=== PATIENT | female | born 1995 | race Native Hawaiian/Other Pacific Islander ===

== ENCOUNTER 2025-01-07 06:44 | Emergency (ER) | payer MEDICAID, SELFPAY ==
--- OUTSIDE RECORDS SUMMARY | 2025-01-07 06:48 | XMS_ITS | Clinical Summary ---
Author Organization [facility] Address [address] [place] [address] Care Team Providers Care Sound Effects Technician Name Role Phone Haley Kearney MD Primary Care Provider [phone] Haley Kearney MD Unavailable [phone] Allergies No known active allergies Medications insulin NPH isophane (U-100) (HumuLIN N NPH Insulin KwikPen) 100 unit/mL (3 mL) penIndications :Type 2 diabetes mellitus in , first trimester (HC) Inject 7 units subcutaneous two times daily before meals. 20 mL 3 01/06/20 25 Active blood sugar diagnostic (Blood Glucose Test) stripIndicatio ns:Type 2 diabetes mellitus in , first trimester (HC) Test 4 times per day. 200 Each 01/06/20 25 Active lancetsIndicat ions:Type 2 diabetes mellitus in , first trimester (HC) As directed. Test 4 times per day. 200 Each 01/06/20 25 Active Insulin [place] (Disposable) 32 gauge x 5/16Indicatio ns:Type 2 diabetes mellitus in , first trimester (HC) For administering insulin at home. 100 Each 01/06/20 25 Active glipiZIDE extended-relea se (GLUCOTROL XL) 10 mg Extended-Relea se tabletIndicati ons:Type 2 diabetes mellitus with hyperglycemia, without long-term current use of insulin (HC) Take 1 Tablet (10 mg) by mouth once daily before a meal. 100 Tablet 3 12/01/19 25 025 Discontin ued(*Med complete/ Regimen complete/ Level of care change) atorvastatin (LIPITOR) 20 mg tabletIndicati ons:Type 2 diabetes mellitus with hyperglycemia, without long-term current use of insulin (HC) Take 1 Tablet (20 mg) by mouth at bedtime. 100 Tablet 3 12/01/19 25 025 Discontin ued(*Med complete/ Regimen complete/ Level of care change) metFORMIN (GLUCOPHAGE XR) 500 mg Extended-Relea se tabletIndicati ons:Type 2 diabetes mellitus with hyperglycemia, without long-term current use of insulin (HC) Take 1 Tablet (500 mg) by mouth two times daily with meals. 200 Tablet 3 12/01/19 25 025 Discontin ued(*Med complete/ Regimen complete/ Level of care change) Active Problems Problem Noted Date Diagnosed Date [facility] Supervision of high-risk Overview (01/06/2025): SRO MPP - Completed [] Patient name: Viviane Torres : 1995 Age: 29 y.o. Date of SRO: 01/06/2025 Estimated Date of Delivery: None noted. Gest Age: Unknown G/P: Current BMI: 46.2 Reason for referral: consult for recommendations REFERRING PROVIDER/CLINIC LOCATION/FAX #: Haley Kearney MD Primary MD approves scheduling of recommended ultrasounds/testing: No Please schedule the following: [x] Cervantes [] Multiples: [x] Consult [x] Ultrasound: - Level 2 (including echo) - 75 minutes [] Lab: [] Genetic Counseling [] Before [] After []15 [] 30 []45 []CVS []Amnio [] BMI > 40 [] Short Order Fry Cook - Language [] [place] Insurance: Location [facility] [] In-person [] Virtual [] Either [facility] Comments: RN: Store Person: ROMEO: /Provider: Date:01/06/2025 Urgency: []Can be sooner [] Can be split Viviane Torres : 1995 REFERRING PROVIDER/CLINIC LOCATION/FAX #: Primary provider approves scheduling of recommended ultrasounds/testing: No MPP ULTRASOUND/TESTING PATIENT MPP CONSULT ON Support person name: Short Order Fry Cook: No ULTRASOUND TYPE: REASON FOR VISIT: NEXT VISIT ALERTS: NURSING VISIT ALERT: Create and link episode at day of visit. Document in Dating section. GA Final ROC by LMP Date: No LMP recorded. ROC: Early US: Date: GA: ROC: IVF Date: PrePregnancy Weight: Height: BMI: PLANS & FUTURE APPOINTMENTS: ULTRASOUND/GROWTH PLAN: - Through: - Growth: Next TESTING PLAN: - Testing: Through DELIVERY PLAN: - Scheduled delivery: - Preferred delivery location: PRIMARY DIAGNOSIS: 29 y.o. No obstetric history on file. Estimated Date of Delivery: None noted. MATERNAL Type II DM microalbuminuria BMI > If mono/di twins add .MONODISCHEDULE If Diabetes Program patient add .DMPCOMM PREVIOUS ULTRASOUNDS: (PCP) ECHO: SPECIALISTS/CONSULTS: [facility] Include: Specialty MD Clinic Name Phone# [place] and ADDED TO PATIENT CARE TEAM GENETICS: NIPS: [id number] low risk AFP: Negative First screen (NT/seq/integ): if positive add .FIRSTABNORMAL Quad screen (Tetra/Triple screen): if positive add .QUADABNORMAL Amniocentesis/CVS: IVF with PGT: Carrier screening: Declines/Not Done CARE COORDINATION: PERTINENT LABS: Labs reviewed? Normal? Blood type: O Rh Positive Antibody screen: Negative Non-[facility] labs need to be entered in EPIC? PERTINENT MEDS: Glipizide Janumet PROCEDURES: IF FGR <10% or EFW <2000 grams: Add FGRPCOM PLAN OF CARE: Original and updated POC Microalbuminuria due to type 2 diabetes mellitus 12/01/2024 Type 2 diabetes mellitus wit h hyperglycemia, without long-term current use of insulin 12/01/2024 Class 3 severe obesity with body mass index (BMI) of 40.0 to 44.9 in adult 12/01/2024 Type 2 diabetes mellitus wit h diabetic microalbuminuria, without long-term current use of insulin 12/01/2024 Cholangitis 02/25/2018 Disorder of bile duct stent 02/22/2018 Biliary obstruction 02/22/2018 Encounters Date Type Department Care Team Description 01/05/2025 9:10 AM CDT Office Visit [facility] [address] [place] [address] Haley Kearney MD Missed Period 01/05/2025 Telephone [facility] [address] [place] [address] Haley Kearney MD Medication Management (insulin NPH isophane (U-100) (HumuLIN N NPH Insulin KwikPen) 100 unit/mL (3 mL) pen) 01/05/2025 Transcribe Orders [facility] [address] [facility] [address] [place] [address] Haley Kearney MD 01/05/2025 Travel 12/09/2024 8:20 AM TOMB MAKER HELPER Office Visit [facility] [address] [place] [phone] Laura Woodward OD Eye Exam (DIRECTOR MOBILE/DM Exam) 12/09/2024 Travel 12/06/2024 Telephone [facility] [address] [place] [address] Haley Kearney MD Questions (metFORMIN (GLUCOPHAGE XR) 500 mg Extended-Release tablet) 12/04/2024 Travel 12/01/2024 8:20 AM TOMB MAKER HELPER Office Visit [facility] [address] [place] [address] Haley Kearney MD Diabetes (Has been feeling really bloated in the afternoons for the last month-abdomen is painful and hard to touch, very uncomfortable and painful to touch-skipped her metformin one night and sx seemed to be better) 12/01/2024 Telephone [facility] [address] [facility] [address] Haley Kearney MD Medication Management (metformin ) 11/30/2024 Travel 10/19/2024 Telephone [facility] [address] [place] [address] Haley Kearney MD Refill Request (/metFORMIN (GLUCOPHAGE XR) 500 mg Extended-Release tablet/) from Last 3 Months Family History Medical History Relation Name Comments Diabetes Brother Hypertension Brother Diabetes Father Diabetes Maternal Aunt Cancer-prostate Maternal Grandfather Diabetes Mother Good Health Sister Relation Name Status Comments Brother Father Maternal Aunt Alive Maternal Grandfather Mother Sister Social History Tobacco Use Types Packs/Day Years Used Date Smoking Tobacco: Never Smokeless Tobacco: Never Tobacco Cessation:Counseling Given: Not Answered Alcohol Use Standard Drinks/Week Comments No 0 (1 standard drink = 0.6 oz pur e alcohol) occ PHQ-2 Answer Date Recorded PHQ-2 TOTAL SCORE 2 12/01/2024 Social Connections Answer Date Recorded Do you often feel lonely or isolated from those around you? 0 08/29/2024 Financial Resource Strain Answer Date R ecorded Difficulty of Paying Living Expenses 3 08/29/2024 Difficulty of Paying Living Expenses Not on file 08/29/2024 Food Insecurity Answer Date Recorded Do you worry your food will run out before you are able to buy more? 1 08/29/2024 Transportation Needs Answer Date Record ed Does lack of transportation keep you from medica l appointments? 1 08/29/2024 Does lack of transportation keep you from work, meetings or getting things that you need? 1 08/29/2024 Housing Stability Answer Date Recorded What is your housing situation today? 1 08/29/2024 Utilities Answer Date Recorded Do you have trouble paying f or utilities (for example, heat, electricity, water, phone)? 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 file Not on file Not on file Obstetrics History Last Filed Vital Signs Vital Sign Reading Time Taken Comments Blood Pressure 113/70 01/05/2025 9:10 AM CDT Pulse 93 01/05/2025 9:10 AM CDT Temperature 36.8 C (98.3 F) 04/22/2018 10:23 AM CDT Respiratory Rate 18 02/25/2018 12:00 PM CDT Oxygen Saturation 99% 01/05/2025 9:10 AM CDT Inhaled Oxygen Concentration - - Weight 136.5 kg (301 lb) 01/05/2025 9:10 AM CDT Height 172.5 cm (5' 7.91) 04/22/2018 10:23 AM C DT Body Mass Index 45.88 04/22/2018 10:23 AM CDT Plan of Treatment Upcoming Encounters Date Type Department Care Team (Late st Contact Info) Description 01/10/2025 1:00 PM CDT Office Visit [address] [address] 01/12/2025 9:40 AM CDT Phone OB Encounter [facility] [address] [place] [address] 01/17/2025 9:00 AM CDT Patient Outreach [facility] [address] [place] [address] Emilee Perea RN [address] [place] [address] 01/17/2025 10:30 AM CDT Office Visit [facility] [address] [address] [place] [address] [place] [address] 01/17/2025 4:00 PM CDT Ancillary Procedure [facility] [address] [place] [address] 01/25/2025 1:00 PM CDT Patient Outreach [address] [address] 02/02/2025 8:20 AM CDT OB Encounter [facility] [address] [facility] [address] Haley Kearney MD [address] [facility] [address] Health Maintenance Due Date Last Done Comments Tdap 2004 Hepatitis B series for Diabe kaylene (1 of 3 - 19+ 3-dose series) 2012 Pneumococcal series for age 6-49 (1 of 2 - PCV) 2012 Tetanus booster 2013 BMI (ht and wt on same day) for age 18+ 04/22/2019 04/22/2018, 04/01/2018, 03/01/2018, Additional history exists Pap test for age 21-65 06/26/2020 06/26/2017 COVID-19 vaccine series ( - 2023- season) 2024 Influenza Vaccine (#1) 2024 Depression screening for age 12+ 12/01/2025 12/01/2024, 12/01/2024, 06/26/2017 HIV for age 15-65 Completed 01/05/2025, 06/26/2017 Hepatitis C screening for ag e 18-79 Completed 01/05/2025, 06/26/2017 Procedures Procedure Name Priority Date/Time Associated Diagnosis Comments HEMOGLOBIN A1C Routine 01/05/2025 10:52 AM CDT Type 2 diabetes mellitus in , first trimester (HC) TSH WITH REFLEX Routine 01/05/2025 10:52 AM CDT Type 2 diabetes mellitus in , first trimester (HC) COMP METABOLIC PANEL Routine 01/05/2025 10:52 AM CDT Type 2 diabetes mellitus in , first trimester (HC) ANTI HIV 1/2 Routine 01/05/2025 10:52 AM CDT Missed period CBC W PLT NO DIFF Routine 01/05/2025 10: 52 AM CDT Missed period RUBELLA IMMUNE STATUS Routine 01/05/2025 10:52 AM CDT Missed period HBSAG (HBS) Routine 01/05/2025 10:52 AM CDT Missed period ANTI HCV Routine 01/05/2025 10:52 AM CDT Missed period VARICELLA-ZOSTER V AB, IGG Routine 01/05/2025 10:52 AM CDT Missed period VARICELLA-ZOSTER V AB, IGG Routine 01/05/2025 10:51 AM CDT Missed period TYPE & SCREEN Routine 01/05/2025 10:49 AM CDT Missed period TREPONEMA PALLIDUM Routine 01/05/2025 10 :49 AM CDT Missed period URINE CULTURE Routine 01/05/2025 10:49 AM CDT Missed period PROTEIN/CREAT RATIO,URINE Routine 01/05/2025 10:49 AM CDT Type 2 diabetes mellitus in , first trimester (HC) URINE POCT Routine 01/05/2025 9:19 AM CDT Missed period HEMOGLOBIN A1C MONITORING (POCT) Routine 12/01/2024 8:23 AM TOMB MAKER HELPER Type 2 diabetes mellitus with hyperglycemia, without long-term current use of insulin (HC) SUPPORT ASSISTANT THIN PREP PAP SCREEN IMAGED Routine 06/26/2017 8:40 AM CDT Screening for cervical cancer from Last 3 Months or Most Recently Relevant to Health Maintenance Results * LC VARICELLA-ZOSTER V AB, IGG (01/05/2025 10:52 AM CDT) Only the most recent of2 resultswithin the time period is included. VARICELLA ZOSTER VIRUS ANTIBODY (IGG) 6.42 S/CO [facility] Comment: Signal to Cut-off S/CO Interpretation --------- <1.00 Negative - Antibody not detected > or = 1.00 Positive - Antibody detected A positive result indicates that the patient has antibody to VZV but does not differentiate between an active or past infection. The clinical diagnosis must be interpreted in conjunction with the clinical signs and symptoms of the patient. This assay reliably measures immunity due to previous infection but may not be sensitive enough to detect antibodies induced by vaccination. Thus, a negative result in a vaccinated individual does not necessarily indicate susceptibility to VZV infection. A more sensitive test for vaccination-induced immunity is Varicella Zoster Virus Antibody Immunity Screen, ACIF. Blood BLOOD SPECIMEN / Unknown 01/05/2025 10:52 AM CDT 01/05/2025 10:52 AM CDT us Haley Kearney MD LABORATORY Final Resul t [employer] [facility] [address] [place] [address], [facility] [address] [place] [address] * (ABNORMAL) HEMOGLOBIN A1C (01/05/2025 10:52 AM CDT) [facility] HEMOGLOBIN A1C 8.7(H) <5.7 % of total Hgb [facility] Comment: For someone without known diabetes, a hemoglobin A1c value of 6.5% or greater indicates that they may have diabetes and this should be confirmed with a follow-up test. For someone with known diabetes, a value <7% indicates that their diabetes is well controlled and a value greater than or equal to 7% indicates suboptimal control. A1c targets should be individualized based on duration of diabetes, age, comorbid conditions, and other considerations. Currently, no consensus exists regarding use of hemoglobin A1c for diagnosis of diabetes for children. Blood BLOOD SPECIMEN / Unknown 01/05/2025 10:52 AM CDT 01/05/2025 10:52 AM CDT us Haley Kearney MD CHEMISTRY Final Resul t Performing Organization Address [facility] de Phone Number [employer] [facility] [address] [place] [phone], [facility] [address] [place] [phone] * TSH WITH REFLEX (01/05/2025 10:52 AM CDT) TSH W/REFLEX TO FT4 2.73 mIU/L [facility] Comment: Reference Range > or = 20 Years 0.40-4.50 Ranges First trimester 0.26-2.66 Second trimester 0.55-2.73 Third trimester 0.43-2.91 Blood BLOOD SPECIMEN / Unknown 01/05/2025 10:52 AM CDT 01/05/2025 10:52 AM CDT us Haley Kearney MD CHEMISTRY Final Resul t Performing Organization Address [facility] de Phone Number [employer] [address] [address], [facility] [address] * RUBELLA IMMUNE STATUS (01/05/2025 10:52 AM CDT) RUBELLA AB (IGG), IMMUNE STATUS 3.30 Index [facility] Comment: Index Interpretation ----- <0.90 Not consistent with immunity 0.90-0.99 Equivocal > or = 1.00 Consistent with immunity The presence of rubella IgG antibody suggests immunization or past or current infection with rubella virus. Blood BLOOD SPECIMEN / Unknown 01/05/2025 10:52 AM CDT 01/05/2025 10:52 AM CDT us Haley Kearney MD SEND OUTS Final Resul t Performing Organization Address [facility] Co de Phone Number [employer] [address] [address], [facility] [address] [place] [address] * HBSAG (HBS) (01/05/2025 10:52 AM CDT) HEPATITIS B SURFACE ANTIGEN NON-REACTI VE NON-REACTI VE [facility] Comment: For additional information, please refer to http://[employer]/faq/OXS468 (This link is being provided for informational/ educational purposes only.) Blood BLOOD SPECIMEN / Unknown 01/05/2025 10:52 AM CDT 01/05/2025 10:52 AM CDT us Haley Kearney MD SEND OUTS Final Resul t Performing Organization Address [facility] Co de Phone Number [employer] [address] [address], [facility] [address] [place] [address] * ANTI HCV (01/05/2025 10:52 AM CDT) HEPATITIS C ANTIBODY NON-REACTI VE NON-REACT IZZY [facility] Comment: HCV antibody was non-reactive. There is no laboratory evidence of HCV infection. In most cases, no further action is required. However, if recent HCV exposure is suspected, a test for HCV RNA (test code 22986) is suggested. For additional information please refer to http://[employer].R[employer]HT [employer]/faq/JAG68g5 (This link is being provided for informational/ educational purposes only.) Blood BLOOD SPECIMEN / Unknown 01/05/2025 10:52 AM CDT 01/05/2025 10:52 AM CDT us Haley Kearney MD SEND OUTS Final Resul t [employer] [facility] [address] [facility] [place] [address], [place] [phone] [facility] [address] [place] [address] * (ABNORMAL) CBC W PLT NO DIFF (01/05/2025 10:52 AM CDT) Pathologist [facility] WHITE BLOOD CELL COUNT 14.3(H) 3.8 - 10.8 Thousand/u L [facility] RED BLOOD CELL COUNT 4.52 3.80 - 5.10 Million/uL [facility] HEMOGLOBIN 12.4 11.7 - 15.5 g/dL [facility] HEMATOCRIT 39.3 35.0 - 45.0 % [facility] MCV 86.9 80.0 - 100.0 fL [facility] MCH 27.4 27.0 - 33.0 pg [facility] MCHC 31.6(L) 32.0 - 36.0 g/dL [facility] Comment: For adults, a slight decrease in the calculated MCHC value (in the range of 30 to 32 g/dL) is most likely not clinically significant; however, it should be interpreted with caution in correlation with other red cell parameters and the patient's clinical condition. RDW 12.8 11.0 - 15.0 % [facility] PLATELET COUNT 384 140 - 400 Thousand/u L [facility] MPV 10.2 7.5 - 12.5 fL [facility] Blood BLOOD SPECIMEN / Unknown 01/05/2025 10:52 AM CDT 01/05/2025 10:52 AM CDT us Haley Kearney MD HEMATOLOGY Final Resul t [employer] [facility] [address] [employer] [address], [place] [phone] [facility] [address] [place] [address] * ANTI HIV 1/2 (01/05/2025 10:52 AM CDT) Pathologist [facility] HIV AG/AB, 4TH GEN NON-REACT IZZY NON-REACT IZZY [facility] Comment: HIV-1 antigen and HIV-1/HIV-2 antibodies were not detected. There is no laboratory evidence of HIV infection. PLEASE NOTE: This information has been disclosed to you from records whose confidentiality may be protected by state law. If your state requires such protection, then the state law prohibits you from making any further disclosure of the information without the specific written consent of the person to whom it pertains, or as otherwise permitted by law. A general authorization for the release of medical or other information is NOT sufficient for this purpose. For additional information please refer to http://education.Seagate [employer]/faq/ZKH085 (This link is being provided for informational/ educational purposes only.) The performance of this assay has not been clinically validated in patients less than 2 years old. Blood BLOOD SPECIMEN / Unknown 01/05/2025 10:52 AM CDT 01/05/2025 10:52 AM CDT us Haley Kearney MD SEND OUTS Final Resul t [employer] [facility] [address] [place] [address], [facility] [address] [place] [address] * (ABNORMAL) COMP METABOLIC PANEL (01/05/2025 10:52 AM CDT) Pathologist [facility] GLUCOSE 191(H) 65 - 99 mg/dL [facility] Comment: Fasting reference interval For someone without known diabetes, a glucose value >125 mg/dL indicates that they may have diabetes and this should be confirmed with a follow-up test. UREA NITROGEN (BUN) 10 7 - 25 mg/dL [facility] CREATININE 0.50 0.50 - 0.97 mg/dL [facility] EGFR 129 > OR = 60 mL/min/1. 73m2 [facility] BUN/CREATININE RATIO SEE NOTE: 6 - 22 (calc) [facility] Comment: Not Reported: BUN and Creatinine are within reference range. SODIUM 133(L) 135 - 146 mmol/L [facility] POTASSIUM 4.8 3.5 - 5.3 mmol/L [facility] CHLORIDE 101 98 - 110 mmol/L [facility] CARBON DIOXIDE 23 20 - 32 mmol/L [facility] CALCIUM 9.6 8.6 - 10.2 mg/dL [facility] PROTEIN, TOTAL 8.2(H) 6.1 - 8.1 g/dL [facility] ALBUMIN 4.6 3.6 - 5.1 g/dL [facility] GLOBULIN 3.6 1.9 - 3.7 g/dL (calc) [facility] ALBUMIN/GLOBULIN RATIO 1.3 1.0 - 2.5 (calc) [facility] BILIRUBIN, TOTAL 0.3 0.2 - 1.2 mg/dL [facility] ALKALINE PHOSPHATASE 96 31 - 125 U/L [facility] AST 14 10 - 30 U/L [facility] ALT 17 6 - 29 U/L [facility] Blood BLOOD SPECIMEN / Unknown 01/05/2025 10:52 AM CDT 01/05/2025 10:52 AM CDT us Haley Kearney MD CHEMISTRY Final Resul t [employer] [facility] [address] [place] [address], [facility] [address] [place] [address] * TREPONEMA PALLIDUM (01/05/2025 10:49 AM CDT) TREPONEMA PALLIDUM Non-Reacti ve Non-Reacti ve 01/05/2025 3:40 PM CDT [facility] Blood BLOOD SPECIMEN / Unknown [facility] / Unknown 01/05/2025 10:49 AM CDT 01/05/2025 10:49 AM CDT Haley Kearney MD SEND OUTS Final Resul t [facility] [address] [place] [address], * TYPE AND SCREEN (01/05/2025 10:49 AM CDT) Pathologist [facility] ABORH O Rh Positive 01/05/2025 4:40 PM CDT [facility] ANTIBODY SCREEN Negative Negative 01/05/2025 4:40 PM CDT [facility] SPECIMEN EXPIRATION DATE/TIME 01/08/25 23:59 01/05/2025 4:40 PM CDT [facility] Blood BLOOD SPECIMEN / Unknown [facility] / Unknown 01/05/2025 10:49 AM CDT 01/05/2025 10:49 AM CDT us Haley Kearney MD BLOOD BANK Final Resul t Performing Organization Address City[facility]/ZIP Co de Phone Number [facility] [address] [place] [address], [place] [phone] * (ABNORMAL) PROTEIN/CREAT RATIO,URINE (01/05/2025 10:49 AM CDT) Pathologist [facility] PROTEIN QUANT,RAND URINE <6 1 - 14 mg/dL 01/05/2025 4:59 PM CDT [facility] CREAT,RANDOM URINE 22.1(L) 28.0 - 217.0 mg/dL 01/05/2025 4:59 PM CDT [facility] PROT/CREAT RATIO,UR 01/05/2025 4:59 PM CDT [facility] Comment:Urine Protein below measurement range, unable to calculate. Urine URINE SPECIMEN / Unknown Non-Blood / Unknown 01/05/2025 10:49 AM CDT 01/05/2025 10:49 AM CDT us Haley Kearney MD URINE Final Resul t Performing Organization Address City[facility]/ZIP Co de Phone Number [facility] [address] [phone], [place] * URINE CULTURE (01/05/2025 10:49 AM CDT) Pathologist [facility] CULTURE No growth (<1,000 CFU/mL) 01/06/2025 2:53 PM CDT [facility] Urine URINE SPECIMEN / Unknown Non-Blood / Unknown 01/05/2025 10:49 AM CDT 01/05/2025 10:49 AM CDT us Haley Kearney MD MICROBIOLOGY Final Resul t Performing Organization Address [facility] Co de Phone Number [facility] [address] [place] [address], * (ABNORMAL) POCT Urine (01/05/2025 9:19 AM CDT) [facility] POC HCG URINE POSITIVE(A ) NEGATIVE [facility] Urine URINE SPECIMEN / Unknown 01/05/2025 9:19 AM CDT 01/05/2025 9:19 AM CDT us Haley Kearney MD URINE Final Resul t Performing Organization Address City/[facility] Co de Phone Number [facility] [address] [place] [address], [place] [phone] [facility] [address] [place] [address] * (ABNORMAL) POCT Hemoglobin A1C Monitoring (12/01/2024 8:23 AM TOMB MAKER HELPER) Pathologist [facility] POC HEMOGLOBIN A1C 9.2(H) <6.0 % OF TOTAL HGB [facility] Comment: Any point of care results exhibiting inconsistency with the patient's clinical status should be repeated using a different testing method. Blood BLOOD SPECIMEN / Unknown 12/01/2024 8:23 AM TOMB MAKER HELPER 12/01/2024 8:24 AM TOMB MAKER HELPER us Haley Kearney MD CHEMISTRY Final Resul t [facility] [address] [place] [address], [facility] [address] [place] [address] * SUPPORT ASSISTANT THIN PREP PAP SCREEN IMAGED (06/26/2017 8:40 AM CDT) Case Report Gynecologic Cytology Report Case: [id number] Authorizing Provider: Emelia Chatman PA Collected: 06/26/2017 0840 Ordering Location: [facility] Received: 06/26/2017 0931 Clinic First Screen: Doretha Lr Specimen: SUPPORT ASSISTANT ThinPrep Vial Screening, Cervical 07/01/2017 11:09 AM CDT [facility] [employer] ENTRAL LABORATORY INTERPRETATION/ RESULT NEGATIVE FOR INTRAEPITHELIAL LESION OR MALIGNANCY (NIL) (none) 07/01/2017 11:09 AM CDT [facility] [employer] ENTRAL LABORATORY IMEN ADEQUACY Satisfactory for evaluation No endocervical component seen 07/01/2017 11:09 AM CDT [facility] HPV REQUEST HPV if ASCUS 07/01/2017 11:09 AM CDT [employer] ENTRAL LABORATORY Date of LMP 06/07/2017 07/01/2017 11:09 AM CDT [facility] [employer] ENTRAL LABORATORY Last Pap Date 1 or 2 years ago 07/01 11:09 AM CDT [employer] ENTRAL LABORATORY Last Pap Result NIL 7 11:09 AM CDT [facility] Abnormal Pap or [place] Bx in last 5 years No 07/01/2017 11:09 AM CDT [facility] Menstrual Status Irregular Periods 07/01/2017 11:09 AM CDT [facility] [place] Bx Done Today No 07/01/2017 11:09 AM CDT [facility] Additional Information None given 07/01/2017 11:09 AM T [facility] Automated Review Successful 07/01/2017 11:09 AM T [facility] Comment:Specimen processed s uccessfully by automated front desk receptionist device, ThinPrep Imaging System, [employer] Note The pap test is a screening technique, not a diagnostic procedure. It is used primarily to screen for squamous cancers and precursor lesions. Published studies have shown that it is subject to both false negative and false positive results. The pap test should not be used as the sole means to diagnose or exclude pre-malignant and malignant lesions. Interpreted at [facility] ([facility] Lab, [facility], [facility], [facility], [facility], [facility], [facility]) 07/01/2017 11:09 AM T [facility] Other (Cervical) 06/26/2017 8:40 AM CDT 06/26/2017 9:31 AM CDT us Emelia AMATO PATHOLOGY/CYTOLOGY Celina pack Result [facility] [address] [place] [address], [place] from Last 3 Months or Most Recently Relevant to Health Maintenance Insurance . [address] [place] [address] [facility] Advance Directives * Full Code (Latest Code Status on File) Date Activated Date Inactivated Comments 02/22/2018 10:31 PM 02/25/2018 5:11 PM Care Teams Sound Effects Technician Relationship Specialty Start Date End Date Haley Kearney MD [address] [place] [address] PCP - General Family Practice 08/29/24 Haley Kearney MD [address] [place] [address] Referring Provider Family Practice 01/05/25
[2025-01-07 06:56] VITALS: BP 120/81; PULSE 111; RESP 18; TEMP 36.7; O2SAT 98; BMI 45.6
[2025-01-07 06:58] LABS: Appearance Urine Slightly Cloudy (Clear); Bilirubin Urine Negative (Negative); Blood Urine 2+ (Negative); Color Urine Yellow (Yellow); Glucose Urine Negative (Negative); Ketones Urine 1+ (Negative); Leukocyte Esterase Urine 1+ (Negative); Nitrite Urine Negative (Negative); Protein Urine Trace (Negative); Specific Gravity Urine 1.025 (1.000-1.030); Urobilinogen Urine 0.2 (0.2-1.0)
[2025-01-07 07:05] LABS: Ur HCG Qualitative* POSITIVE (Negative)
[2025-01-07 07:11] LABS: Bacteria Urine Many; Squamous Epithelial Cell Urine Many (None-Few)
--- NOTE | 2025-01-07 07:12 | CRLHL7_ITS ---
For Patients: As a result of the Century Cures Act, medical imaging exams and procedure reports are released immediately into your electronic medical record. You may view this report before your referring provider. If you have questions, please contact your health care provider. INDICATION: with spotting. TECHNIQUE: Ultrasound OB pelvis transvaginal. Real-time roy-scale imaging of the pelvis was performed. COMPARISON: None. FINDINGS: Uterus and endometrium: Small sac or fluid collection may be within the left horn of a bicornuate uterus. Yolk sac: Not visualized. Fetus: Not visualized. Perigestational hemorrhage: None. Ovaries and adnexa: A thick-walled lesion in or adjacent to the right ovary measures 3 x 2 x 2 cm. Remainder of the ovaries and adnexa are unremarkable. Suspicious pelvic fluid collections: None. IMPRESSION: 1. Indeterminate small sacral fluid collection which may be in the left horn of a possible bicornuate uterus. 2. 3 x 2 x 2 cm thick-walled cystic lesion in or adjacent to the right ovary. This could represent a corpus luteum. Ectopic is not excluded. 3. The findings in the endometrium and right adnexa are indeterminate and warrant close short-term follow-up evaluation with beta HCG levels and repeat ultrasound if necessary. Dictated by Javier Mendez MD @ 01/07/2025 8:37:49 AM (Electronically Signed)
--- NOTE | 2025-01-07 07:13 | ED.GENADULT ---
HPI - General Adult General Chief complaint: Urogenital Problems, Female <Sofi Angela MD - Last Filed: 01/09/25 00:00> Stated complaint: nausea, spotting (), painful urination <Sofi Angela MD - Last Filed: 01/09/25 00:00> Time Seen by Provider: 01/07/25 06:52 <Sofi Angela MD - Last Filed: 01/09/25 00:00> Source: patient <Sofi Angela MD - Last Filed: 01/09/25 00:00> Mode of arrival: ambulatory <Sofi Angela MD - Last Filed: 01/09/25 00:00> Limitations: no limitations <Sofi Angela MD - Last Filed: 01/09/25 00:00> History of Present Illness HPI narrative: 29-year-old female presents to the emergency department with concerns of dysuria, lower pelvic achiness, vaginal spotting at 6 weeks estimated gestational age of 2nd . Patient reports she had a positive test at home on and was evaluated in the clinic for this. She had confirmatory urine test performed and she did have her initial OB labs drawn. She is able to pull these up for me on her phone confirms that her blood type is O-positive. This is her 2nd in her 1st was back in [place]. She has a history of type 2 diabetes and typically takes glipizide and metformin and was transition to nightly basal insulin at the provider visit on which is 2 days ago. No fever. Does note urinary frequency, urgency and burning. She is pretty confident that the source of the bleeding is vaginal and not urinary but is not completely confident. Light spotting only, no heavy bleeding or clots. This started last night around 9:00 p.m.. No history of kidney stones. Blood sugars running 200-250. Has been having morning nausea for the past couple of mornings. Had this in her last and did Zofran and found it helpful. Did not try taking any this morning and has had some vomiting this morning. She does not seem particularly bothered by it. No abdominal pain, shortness of breath, lightheadedness. No trauma or injury. Did not try any other interventions to help with symptoms. Has not had ultrasound performed in this thus yet. Is confident of her last menstrual period 6 weeks ago. Past medical history notable for obesity, type 2 diabetes. Prior cholecystectomy. Nonsmoker. Home medications currently basal insulin, recently discontinuing metformin and glipizide. Denies drug allergies. ROS is notable for the GI and symptoms only, otherwise denies times 12 systems. <Sofi Angela MD - Last Filed: 01/09/25 00:00> Related Data Home medications: Previous Rx's ?Medication ?Instructions ?Recorded cephalexin 500 mg capsule 500 mg PO TID 7 days #21 caps 01/07/25 ondansetron 4 mg disintegrating 4 mg PO Q6H PRN nausea and 01/07/25 tablet vomiting #30 tabs <Sofi Angela MD - Last Filed: 01/09/25 00:00> Allergies/adverse reactions: Allergies Allergy/AdvReac Type Severity Reaction Status Date / Time No Known Drug Allergies Allergy Verified 01/07/25 06:59 <Sofi Angela MD - Last Filed: 01/09/25 00:00> PFSH PFS Medical History: Medical History Biliary obstruction ?K83.1 - Obstruction of bile duct (ICD-10) 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 - Unspecified complication of internal prosthetic device, implant and graft, initial encounter (ICD-10) Cholangitis ?K83.09 - Other cholangitis (ICD-10) Severe obesity ?E66.01 - Morbid (severe) obesity due to excess calories (ICD-10) Type 2 diabetes mellitus ?E11.9 - Type 2 diabetes mellitus without complications (ICD-10) <Sofi Angela MD - Last Filed: 01/09/25 00:00> Surgical History: Surgical History History of ERCP ?Z98.890 - Other specified postprocedural states (ICD-10) History of cholecystectomy ?Z90.49 - Acquired absence of other specified parts of digestive tract (ICD-10) <Sofi Angela MD - Last Filed: 01/09/25 00:00> Social History: Social History Smoking Status: Never smoker Second hand tobacco smoke exposure: No How often do you have a drink containing alcohol: never AUDIT-C Alcohol total score: 0 Non-prescribed substance use: denies use <Sofi Angela MD - Last Filed: 01/09/25 00:00> Exam Const: Vital Signs, click to edit/add: Vital Signs - 24 hr 01/07/25 06:56 01/07/25 08:38 Temperature 98.0 F Pulse Rate [Pulse Oximeter] 111 H 86 Respiratory Rate 18 16 Blood Pressure [Ri ght Upper Arm] 120/81 129/72 Pulse Oximetry 98 99 Oxygen Delivery Me thod Room Air Room Air <Sofi Angela MD - Last Filed: 01/09/25 00:00> Vital Signs, click to edit/add: Vital Signs - 24 hr 01/07/25 06:56 01/07/25 08:38 Temperature 98.0 F Pulse Rate [Pulse Oximeter] 111 H 86 Respiratory Rate 18 16 Blood Pressure [Ri ght Upper Arm] 120/81 129/72 Pulse Oximetry 98 99 Oxygen Delivery Me thod Room Air Room Air <Shena Diamond MD - Last Filed: 01/07/25 09:39> Documenting provider has reviewed patient's vital signs: yes <Sofi Angela MD - Last Filed: 01/09/25 00:00> Common normals: no apparent distress <Sofi Angela MD - Last Filed: 01/09/25 00:00> General appearance: well kempt <Sofi Angela MD - Last Filed: 01/09/25 00:00> Other: Appears well-nourished and well-hydrated, excellent historian. Polite and cooperative. Heart rate is now under 90 at the time of my auscultation. <Sofi Angela MD - Last Filed: 01/09/25 00:00> HENMT: Common normals: normocephalic <Sofi Angela MD - Last Filed: 01/09/25 00:00> Head and scalp: normocephalic <MD Kiana Riggs Last Filed: 01/09/25 00:00> Face and sinus: normal facial exam <MD Kiana Riggs Last Filed: 01/09/25 00:00> Mouth: oral and palatal mucosa normal <MD Kiana Riggs Last Filed: 01/09/25 00:00> Throat: posterior oropharynx normal <MD Kiana Riggs Last Filed: 01/09/25 00:00> Eye: Common normals: conjunctivae normal <MD Kiana Riggs Last Filed: 01/09/25 00:00> General eye: normal appearance of both eyes <MD Kiana Riggs Last Filed: 01/09/25 00:00> Conjunctiva: conjunctiva(e) normal <MD Kiana Riggs Last Filed: 01/09/25 00:00> Neck & C-Spine: Common normals: no lymphadenopathy <MD Kiana Riggs Last Filed: 01/09/25 00:00> General: normal visual inspection <MD Kiana Riggs Last Filed: 01/09/25 00:00> Resp: Common normals: normal respiratory effort, no use of accessory muscles and clear to auscultation bilaterally <MD Kiana Riggs Last Filed: 01/09/25 00:00> Effort & inspection: able to speak in complete sentences <MD Kiana Riggs Last Filed: 01/09/25 00:00> Auscultation: clear to auscultation bilaterally <MD Kiana Riggs Last Filed: 01/09/25 00:00> Cardio: Common normals: regular rate, regular rhythm, S1 normal heart sound, S2 normal heart sound and no murmurs <MD Kiana Riggs Last Filed: 01/09/25 00:00> Rate: regular rate <MD Kiana Riggs Last Filed: 01/09/25 00:00> Rhythm: regular rhythm <MD Kiana Riggs Last Filed: 01/09/25 00:00> Heart sounds: S1 normal and S2 normal <MD Kiana Riggs Last Filed: 01/09/25 00:00> GI: Common normals: Normal to inspection, nondistended, normoactive bowel sounds present <MD Kiana Riggs Last Filed: 01/09/25 00:00> Other: Obese but soft. Difficult to palpate the organs due to body habitus. No obvious tenderness to palpation. No obvious mass. Fundal height cannot be palpated which would not be unexpected at this gestational age. <MD Kiana Riggs Last Filed: 01/09/25 00:00> : Common normals: no CVA tenderness <MD Kiana Riggs Last Filed: 01/09/25 00:00> Bladder/kidney exam: no CVA tenderness <MD Kiana Riggs Last Filed: 01/09/25 00:00> Back & Pelvis: Common normals: no CVA tenderness <MD Kiana Riggs Last Filed: 01/09/25 00:00> Extremity: Common normals: normal to inspection and normal capillary refill <MD Kiana Riggs Last Filed: 01/09/25 00:00> Psych: Common normals: speech normal <MD Kiana Riggs Last Filed: 01/09/25 00:00> Appearance: well kempt <MD Kiana Riggs Last Filed: 01/09/25 00:00> Attitude: engaged <MD Kiana Riggs Last Filed: 01/09/25 00:00> Activity/motor behavior: appropriate eye contact <MD Kiana Riggs Last Filed: 01/09/25 00:00> Speech: normal speech <MD Kiana Riggs Last Filed: 01/09/25 00:00> Insight: insight good <MD Kiana Riggs Last Filed: 01/09/25 00:00> Judgement: judgment good <MD Kiana Riggs Last Filed: 01/09/25 00:00> Skin: Common normals: no rashes or lesions noted <Sofi Angela MD - Last Filed: 01/09/25 00:00> General skin exam: no rashes or lesions noted <Sofi Angela MD - Last Filed: 01/09/25 00:00> Course Course ED Course: 29-year-old female estimated be 6 weeks gestation presenting with lower pelvic cramping, nausea and vaginal spotting. Symptoms are suspicious for urinary tract infection but cannot exclude ectopic , 1st trimester loss, threatened miscarriage, ureterolithiasis, gastroenteritis, ovarian torsion, amongst others. Will start with urinalysis and urine test. We discussed the risks and benefits of Zofran and she accepts a dose of this here in the ED. 8 mg p.o. x1 ordered. Because of the diabetes, I would recommend basic metabolic panel, CBC and quantitative hCG. First trimester ultrasound ordered. Await findings. <Sofi Angela MD - Last Filed: 01/09/25 00:00> Vital Signs Vital signs: Initial Vital Signs Temperature 98.0 F 01/07/25 06:56 Temperature Source Temporal Artery Scan 01/07/25 06:56 Pulse Rate 111 H 01/07/25 06:56 Respiratory Rate 18 01/07/25 06:56 Blood Pressure 120/81 01/07/25 06:56 Blood Pressure Mean 94 01/07/25 06:56 Blood Pressure Position Sitting 01/07/25 06:56 Pulse Oximetry 98 01/07/25 06:56 Oxygen Delivery Method Room Air 01/07/25 06:56 Vital Signs Temperature 98.0 F 01/07/25 06:56 Pulse Rate 111 H 01/07/25 06:56 Respiratory Rate 18 01/07/25 06:56 Blood Pressure 120/81 01/07/25 06:56 Pulse Oximetry 98 01/07/25 06:56 Oxygen Delivery Method Room Air 01/07/25 06:56 Temperature 98.0 F 01/07/25 06:56 Pulse Rate 86 01/07/25 08:38 Respiratory Rate 16 01/07/25 08:38 Blood Pressure 129/72 01/07/25 08:38 Pulse Oximetry 99 01/07/25 08:38 Oxygen Delivery Method Room Air 01/07/25 08:38 <Sofi Angela MD - Last Filed: 01/09/25 00:00> Initial Vital Signs Temperature 98.0 F 01/07/25 06:56 Temperature Source Temporal Artery Scan 01/07/25 06:56 Pulse Rate 111 H 01/07/25 06:56 Respiratory Rate 18 01/07/25 06:56 Blood Pressure 120/81 01/07/25 06:56 Blood Pressure Mean 94 01/07/25 06:56 Blood Pressure Position Sitting 01/07/25 06:56 Pulse Oximetry 98 01/07/25 06:56 Oxygen Delivery Method Room Air 01/07/25 06:56 Vital Signs Temperature 98.0 F 01/07/25 06:56 Pulse Rate 111 H 01/07/25 06:56 Respiratory Rate 18 01/07/25 06:56 Blood Pressure 120/81 01/07/25 06:56 Pulse Oximetry 98 01/07/25 06:56 Oxygen Delivery Method Room Air 01/07/25 06:56 Temperature 98.0 F 01/07/25 06:56 Pulse Rate 86 01/07/25 08:38 Respiratory Rate 16 01/07/25 08:38 Blood Pressure 129/72 01/07/25 08:38 Pulse Oximetry 99 01/07/25 08:38 Oxygen Delivery Method Room Air 01/07/25 08:38 <Shena Diamond MD - Last Filed: 01/07/25 09:39> Medications Administered Medications: Discontinued Medications Generic Name Dose Route Start Last Admin Trade Name Freq PRN Reason Stop Dose Admin Cephalexin HCl 500 mg 01/07/25 07:28 01/07/25 07:38 Cephalexin 500 Mg Capsule PO 01/07/25 07:29 500 mg ONCE ONE Administration Ondansetron HCl 8 mg 01/07/25 07:14 01/07/25 07:38 Ondansetron Odt 4 Mg Tab PO 01/07/25 07:15 8 mg ONCE ONE Administration <Sofi Angela MD - Last Filed: 01/09/25 00:00> Discontinued Medications Generic Name Dose Route Start Last Admin Trade Name Freq PRN Reason Stop Dose Admin Cephalexin HCl 500 mg 01/07/25 07:28 01/07/25 07:38 Cephalexin 500 Mg Capsule PO 01/07/25 07:29 500 mg ONCE ONE Administration Ondansetron HCl 8 mg 01/07/25 07:14 01/07/25 07:38 Ondansetron Odt 4 Mg Tab PO 01/07/25 07:15 8 mg ONCE ONE Administration <Shena Diamond MD - Last Filed: 01/07/25 09:39> Medical Decision Making MDM Narrative Medical decision making narrative: I was asked to follow up on lab and imaging results of this patient. Her CBC showed a slightly elevated white cell count at 13.8, hemoglobin 11.6. Chemistries were unremarkable. Glucose was elevated at 170. Urinalysis showing 2+ blood, 1+ leukocyte esterase, 5-10 rbc's, 5-10 wbc's, many squamous epithelial cells. HCG is 183 which is consistent with a anywhere from 1-3 weeks gestation. Ultrasound does not show an intrauterine , but does show 1. Indeterminate small sacral fluid collection which may be in the left horn of a possible bicornuate uterus. 2. 3 x 2 x 2 cm thick-walled cystic lesion in or adjacent to the right ovary. This could represent a corpus luteum. Ectopic is not excluded. Consulted with [facility], Dr. Fall, repeat HCG and US in 48 hours. Will follow up with Callum PAEZ on Thursday. <Shena Diamond MD - Last Filed: 01/07/25 09:39> Lab Data Lab results reviewed: Yes I reviewed the patient's lab results <Sofi Angela MD - Last Filed: 01/09/25 00:00> Lab results narrative: Urine hCG positive as expected. Mild leukocytosis an absolute neutrophil count elevation noted. HCG quant is pending. Urinalysis does have a lot of bacteria and does have 1+ leukocyte esterase which is suspicious for urinary tract infection. Mild hematuria could certainly be from the infection or could be from the vaginal spotting. Will start Keflex and hand over care to incoming day should partner. <Sofi Angela MD - Last Filed: 01/09/25 00:00> Labs: Lab Results 01/07/25 01/07/25 Range/Units 06:53 07:35 WBC 13.82 H (4.50-11.00) K/uL RBC 4.23 (4.00-5.20) m/uL Hgb 11.6 L (12.0-16.0) gm/dL Hct 35.8 (33.0-51.0) % MCV 85 (80-100) fL MCH 27 (26-34) pg MCHC 32 (32-36) gm/dL RDW Coeff of Shital 13.2 (11.5-15.5) % Plt Count 340 (140-440) K/uL Neut % (Auto) 75.3 H (42.0-72.0) % Lymph % (Auto) 17.1 L (20-44) % [place] % (Auto) 4.1 (0.0-11.0) % Eos % (Auto) 2.7 (0.0-7.0) % Baso % (Auto) 0.1 (0.0-3.0) % Neut # (Auto) 10.40 H (1.7-7.0) K/uL Lymph # (Auto) 2.40 (0.90-2.90) K/uL [place] # (Auto) 0.60 (0.00-0.90) K/UL Eos # (Auto) 0.40 (0.00-0.50) K/uL Baso # (Auto) 0.00 (0.00-0.30) K/uL Abs Immat Gran (auto) 0.10 (0.00-0.30) K/uL Imm/Tot Granulo (auto) 0.7 % Sodium 138 (135-149) mmol/L Potassium 3.9 (3.6-5.1) mmol/L Chloride 106 (96-114) mmol/L Carbon Dioxide 20 (20-32) mmol/L Anion Gap 12 (7-15) mEq/L BUN 11 (5-24) mg/dL Creatinine 0.4 L (0.5-1.5) mg/dL Estimated Creat Clear 205.57 Estimated GFR 136 ml/min Glucose 170 H (60-115) mg/dL Calcium 9.2 (8.4-10.6) mg/dL HCG, Quant 183.84 mIU/mL Urine Color Yellow (Yellow) Urine Appearance Slightly Cloudy A (Clear) Urine pH 6.0 (5.0-8.5) Ur Specific [place] 1.025 (1.000-1.030) Urine Protein Trace A (Negative) Urine Glucose (UA) Negative (Negative) Urine Ketones 1+ A (Negative) Urine Blood 2+ A (Negative) Urine Nitrite Negative (Negative) Urine Bilirubin Negative (Negative) Urine Urobilinogen 0.2 (0.2-1.0) Ur Leukocyte Esterase 1+ A (Negative) Urine RBC 5-10 A (0-2) Urine WBC 5-10 A (0-5) Ur Squamous Epith Cells Many A (None-Few) Urine Bacteria Many A (None) Urine HCG, Qual POSITIVE H (Negative) <Sofi Angela MD - Last Filed: 01/09/25 00:00> Lab Results 01/07/25 01/07/25 Range/Units 06:53 07:35 WBC 13.82 H (4.50-11.00) K/uL RBC 4.23 (4.00-5.20) m/uL Hgb 11.6 L (12.0-16.0) gm/dL Hct 35.8 (33.0-51.0) % MCV 85 (80-100) fL MCH 27 (26-34) pg MCHC 32 (32-36) gm/dL RDW Coeff of Shital 13.2 (11.5-15.5) % Plt Count 340 (140-440) K/uL Neut % (Auto) 75.3 H (42.0-72.0) % Lymph % (Auto) 17.1 L (20-44) % [place] % (Auto) 4.1 (0.0-11.0) % Eos % (Auto) 2.7 (0.0-7.0) % Baso % (Auto) 0.1 (0.0-3.0) % Neut # (Auto) 10.40 H (1.7-7.0) K/uL Lymph # (Auto) 2.40 (0.90-2.90) K/uL [place] # (Auto) 0.60 (0.00-0.90) K/UL Eos # (Auto) 0.40 (0.00-0.50) K/uL Baso # (Auto) 0.00 (0.00-0.30) K/uL Abs Immat Gran (auto) 0.10 (0.00-0.30) K/uL Imm/Tot Granulo (auto) 0.7 % Sodium 138 (135-149) mmol/L Potassium 3.9 (3.6-5.1) mmol/L Chloride 106 (96-114) mmol/L Carbon Dioxide 20 (20-32) mmol/L Anion Gap 12 (7-15) mEq/L BUN 11 (5-24) mg/dL Creatinine 0.4 L (0.5-1.5) mg/dL Estimated Creat Clear 205.57 Estimated GFR 136 ml/min Glucose 170 H (60-115) mg/dL Calcium 9.2 (8.4-10.6) mg/dL HCG, Quant 183.84 mIU/mL Urine Color Yellow (Yellow) Urine Appearance Slightly Cloudy A (Clear) Urine pH 6.0 (5.0-8.5) Ur Specific [place] 1.025 (1.000-1.030) Urine Protein Trace A (Negative) Urine Glucose (UA) Negative (Negative) Urine Ketones 1+ A (Negative) Urine Blood 2+ A (Negative) Urine Nitrite Negative (Negative) Urine Bilirubin Negative (Negative) Urine Urobilinogen 0.2 (0.2-1.0) Ur Leukocyte Esterase 1+ A (Negative) Urine RBC 5-10 A (0-2) Urine WBC 5-10 A (0-5) Ur Squamous Epith Cells Many A (None-Few) Urine Bacteria Many A (None) Urine HCG, Qual POSITIVE H (Negative) <Shena Diamond MD - Last Filed: 01/07/25 09:39> Imaging Data US - abdomen: Attestation: I have reviewed the pertinent imaging results. <Shena Diamond MD - Last Filed: 01/07/25 09:39> Radiologist's impression: Ultrasound OB pelvis transvaginal. Real-time roy-scale imaging of the pelvis was performed. COMPARISON: None. FINDINGS: Uterus and endometrium: Small sac or fluid collection may be within the left horn of a bicornuate uterus. Yolk sac: Not visualized. Fetus: Not visualized. Perigestational hemorrhage: None. Ovaries and adnexa: A thick-walled lesion in or adjacent to the right ovary measures 3 x 2 x 2 cm. Remainder of the ovaries and adnexa are unremarkable. Suspicious pelvic fluid collections: None. IMPRESSION: 1. Indeterminate small sacral fluid collection which may be in the left horn of a possible bicornuate uterus. 2. 3 x 2 x 2 cm thick-walled cystic lesion in or adjacent to the right ovary. This could represent a corpus luteum. Ectopic is not excluded. 3. The findings in the endometrium and right adnexa are indeterminate and warrant close short-term follow-up evaluation with beta HCG levels and repeat ultrasound if necessary. <Shena Diamond MD - Last Filed: 01/07/25 09:39> Discharge Plan Discharge Clinical Impression: Urinary tract infection affecting <Sofi Angela MD - Last Filed: 01/09/25 00:00> Patient Disposition: Home, Self-Care <Sofi Angela MD - Last Filed: 01/09/25 00:00> Additional Instructions: It does appear that there is a mild bladder infection. We have started on an antibiotic, cephalexin also known as Keflex for this. Take 1 pill 3 times daily for a week. Symptoms do typically improved quite a bit within the next 48 hours. I have also provided with a prescription for Zofran also known as ondansetron to use for nausea and vomiting if needed. As we discussed, this is determined to be mostly safe in they should discuss other options with her primary care provider if this medication is needed often. Continue to push fluids, try to keep your blood sugars as tightly controlled as possible. It is too early to tell if your is inside the uterus or if it is an ectopic . This is not abnormal this early in the . But because you are having cramping, 1 make sure that you are not having an ectopic and so we will repeat the ultrasound and lab tests every 48 hours. You will need to call the [facility] clinic, your OBGYN, 1st thing on Thursday morning to be seen on Thursday to have your repeat blood were and ultrasound done. If you have trouble getting in on Thursday you should return to the emergency department. Return to ER with acute pain, shortness of breath or increased bleeding where you are soaking a pad every 1-2 hours or more. <Sofi Angela MD - Last Filed: 01/09/25 00:00> Activity Level: No Restrictions <Sofi Angela MD - Last Filed: 01/09/25 00:00> No Restrictions <Shena Diamond MD - Last Filed: 01/07/25 09:39> Discharge Diet: Diabetic <Sofi Angela MD - Last Filed: 01/09/25 00:00> Diabetic <Shena Diamond MD - Last Filed: 01/07/25 09:39> Prescriptions: New cephalexin 500 mg capsule 500 mg PO TID 7 Days Qty: 21 0RF ondansetron 4 mg tablet,disintegrating 4 mg PO Q6H PRN (Reason: nausea and vomiting) Qty: 30 0RF <Sofi Angela MD - Last Filed: 01/09/25 00:00> Follow Up/Referrals: Emelia Chatman PA-C [Referring] - <Sofi Angela MD - Last Filed: 01/09/25 00:00> Stand Alone Forms: [facility] Info Instructions <Sofi Angela MD - Last Filed: 01/09/25 00:00>
[2025-01-07] MEDS: ONDANSETRON ODT 4 MG TAB 8 MG PO (07:38)
[2025-01-07] MEDS: cephALEXin 500 MG CAPSULE PO (07:38)
[2025-01-07 07:46] LABS: Basophils Percent Auto 0.1 % (0.0-3.0); Eosinophils Percent Auto 2.7 % (0.0-7.0); Hematocrit 35.8 % (33.0-51.0); Hemoglobin* 11.6 gm/dL (12.0-16.0); Immature Granulocytes Pct Auto 0.7 %; Lymphocytes Percent Auto 17.1 % (20-44); Mean Corpuscular HGB Conc 32 gm/dL (32-36); Mean Corpuscular Hemoglobin 27 pg (26-34); Mean Corpuscular Volume 85 fL (80-100); Monocytes Percent Auto 4.1 % (0.0-11.0); Neutrophils Percent Auto 75.3 % (42.0-72.0); Platelet Count* 340 K/uL (140-440); RDW Coefficient of Variation % 13.2 % (11.5-15.5); Red Blood Count 4.23 m/uL (4.00-5.20); White Blood Count* 13.82 K/uL (4.50-11.00)
[2025-01-07 07:47] LABS: Slide Review Reflex No
[2025-01-07 07:59] LABS: Chloride* 106 mmol/L (96-114); Potassium* 3.9 mmol/L (3.6-5.1); Sodium* 138 mmol/L (135-149)
--- OUTSIDE RECORDS SUMMARY | 2025-01-07 08:00 | XMS_ITS | Clinical Summary ---
Author Organization [facility] Address [address] [place] [address] Care Team Providers Care Dairy Associate Name Role Phone Haley Kearney MD Primary Care Provider Haley Kearney MD Unavailable [phone] Allergies No known active allergies Medications insulin [...] day. 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 - Language [] [place] Insurance: Location Specialty Days Any [facility] Clinic [] In-person [] Virtual [] Either [facility] Comments: RN: Inside Account Executive: ROMEO: /Provider: Date:01/06/2025 Urgency: []Can be sooner [] Can be split Viviane Torres : 1995 REFERRING PROVIDER/CLINIC LOCATION/FAX #: Primary provider approves scheduling of recommended ultrasounds/testing: No MPP ULTRASOUND/TESTING PATIENT MPP CONSULT ON Support person name: Production Ski Repairer: No ULTRASOUND TYPE: REASON FOR VISIT: NEXT [...] add .DMPCOMM PREVIOUS ULTRASOUNDS: (PCP) ECHO: SPECIALISTS/CONSULTS: [facility]wey Barney Include: Specialty MD Clinic Name Phone# [place] and ADDED TO PATIENT CARE TEAM GENETICS: NIPS: [id number] low risk AFP: Negative First screen (NT/seq/integ): [...] Description 01/05/2025 9:10 AM CDT Office Visit [facility] [address] [place] [address] Haley Kearney MD Missed Period 01/05/2025 Telephone [facility] [address] [place] [address] Haley Kearney MD Medication Management (insulin NPH isophane (U-100) (HumuLIN N NPH Insulin KwikPen) 100 unit/mL (3 mL) pen) 01/05/2025 Transcribe Orders [facility] [address] [facility] [address] [place] [address] Haley Kearney MD 01/05/2025 Travel 12/09/2024 8:20 AM ARC TRIMMER Office Visit [facility] [address] [place] [phone] Laura Woodward OD Eye Exam (SKETCH LINER/DM Exam) 12/09/2024 Travel 12/06/2024 Telephone [facility] [address] [place] [address] Haley Kearney MD Questions (metFORMIN (GLUCOPHAGE XR) 500 mg Extended-Release tablet) 12/04/2024 Travel 12/01/2024 8:20 AM ARC TRIMMER Office Visit [facility] [address] [place] [address] Haley Kearney MD Diabetes (Has been feeling really bloated in the afternoons for the last month-abdomen is painful and hard to touch, very uncomfortable and painful to touch-skipped her metformin one night and sx seemed to be better) 12/01/2024 Telephone [facility] [address] [facility] [place] [address] Haley Kearney MD Medication Management (metformin ) 11/30/2024 Travel 10/19/2024 Telephone [facility] [address] [facility] [place] [address] Haley Kearney MD Refill Request (/metFORMIN (GLUCOPHAGE [...] on file Legal Sex Female 9:36 AM ARC TRIMMER Gender Identity Not on file Sexual Orientation Not on file 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 Not on file [...] Description 01/10/2025 1:00 PM CDT Office Visit [address] [address] 01/12/2025 9:40 AM CDT Phone OB Encounter [facility] [address] [place] [address] 01/17/2025 9:00 AM CDT Patient Outreach [facility] [address] [place] [address] Emilee Perea RN [address] [place] [address] 01/17/2025 10:30 AM CDT Office Visit [facility] [address] [address] [place] [address] [place] [address] 01/17/2025 4:00 PM CDT Ancillary Procedure [facility] [address] [place] [address] 01/25/2025 1:00 PM CDT Patient Outreach [address] [address] 02/02/2025 8:20 AM CDT OB Encounter [facility] [address] [facility] [address] Haley Kearney MD [address] [facility] [address] Health Maintenance Due Date Last Done Comments [...] A1C MONITORING (POCT) Routine 12/01/2024 8:23 AM ARC TRIMMER Type 2 diabetes mellitus with hyperglycemia, without long-term current use of insulin (HC) 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 VARICELLA ZOSTER VIRUS ANTIBODY (IGG) 6.42 S/CO [facility] Comment: Signal to Cut-off S/CO Interpretation [...] Kearney MD LABORATORY Final Resul t [facility] [employer] [facility] [address] [place] [address], [facility] [address] [place] [address] * (ABNORMAL) HEMOGLOBIN A1C (01/05/2025 10:52 AM CDT) [facility] HEMOGLOBIN A1C 8.7(H) <5.7 % of total Hgb [facility] Comment: For someone without known diabetes, [...] CHEMISTRY Final Resul t Performing Organization Address [facility] de Phone Number [employer] [facility] [address] [place] [phone], [facility] [address] [place] [phone] * TSH WITH REFLEX (01/05/2025 10:52 AM CDT) TSH W/REFLEX TO FT4 2.73 mIU/L [facility] Comment: Reference Range > or = 20 Years 0.40-4.50 Ranges First trimester 0.26-2.66 Second trimester 0.55-2.73 Third trimester 0.43-2.91 Blood BLOOD SPECIMEN / Unknown 01/05/2025 10:52 AM CDT 01/05/2025 10:52 AM CDT us Haley Kearney MD CHEMISTRY Final Resul t Performing Organization Address [facility] de Phone Number [facility] [address] [address], [facility] [address] * RUBELLA IMMUNE STATUS (01/05/2025 10:52 AM CDT) RUBELLA AB (IGG), IMMUNE STATUS 3.30 Index [facility] Comment: Index Interpretation ----- <0.90 Not consistent with immunity 0.90-0.99 Equivocal > or = 1.00 Consistent with immunity The presence of rubella IgG antibody suggests immunization or past or current infection with rubella virus. Blood BLOOD SPECIMEN / Unknown 01/05/2025 10:52 AM CDT 01/05/2025 10:52 AM CDT us Haley Kearney MD SEND OUTS Final Resul t Performing Organization Address [facility] Co de Phone Number [employer] [address] [address], [facility] [address] [place] [address] * HBSAG (HBS) (01/05/2025 10:52 AM CDT) HEPATITIS B SURFACE ANTIGEN NON-REACTI VE NON-REACTI VE [facility] Comment: For additional information, please refer to http://Smart Gardener.L[employer] Capital/faq/CTY651 (This link is being provided for informational/ educational purposes only.) Blood BLOOD SPECIMEN / Unknown 01/05/2025 10:52 AM CDT 01/05/2025 10:52 AM CDT us Haley Kearney MD SEND OUTS Final Resul t Performing Organization Address [facility] Co de Phone Number [employer]cc[employer] [address] [address], [facility] [address] [place] [address] * ANTI HCV (01/05/2025 10:52 AM CDT) HEPATITIS C ANTIBODY NON-REACTI VE NON-REACT IZZY [facility] Comment: HCV antibody was non-reactive. There is no laboratory evidence of HCV infection. In most cases, no further action is required. However, if recent HCV exposure is suspected, a test for HCV RNA (test code 90574) is suggested. For additional information please refer to http://Smart Gardener.[employer].Kleermail/faq/BAG62g5 (This link is being provided for informational/ educational purposes only.) Blood BLOOD SPECIMEN / Unknown 01/05/2025 10:52 AM CDT 01/05/2025 10:52 AM CDT us Haley Kearney MD SEND OUTS Final Resul t [facility] [employer] [facility] [address] [facility] [place] [address], [place] [phone] [facility] [address] [place] [address] * (ABNORMAL) CBC W PLT NO DIFF (01/05/2025 10:52 AM CDT) Pathologist [facility] WHITE BLOOD CELL COUNT 14.3(H) 3.8 - [...] AM CDT 01/05/2025 10:52 AM CDT us Hlaey Kearney MD HEMATOLOGY Final Resul t [employer] [address] [employer] Oil ServicesDERREK [place] [address], [place] [phone] [facility] [address] [place] [address] * ANTI HIV 1/2 (01/05/2025 10:52 AM CDT) Pathologist [facility] HIV AG/AB, 4TH GEN NON-REACT IZZY NON-REACT IZZY [facility] Comment: HIV-1 antigen and HIV-1/HIV-2 antibodies were [...] purpose. For additional information please refer to http://education.Lighter Capital/faq/SKR067 (This link is being provided for informational/ educational purposes only.) The performance of this assay has not been clinically validated in patients less than 2 years old. Blood BLOOD SPECIMEN / Unknown 01/05/2025 10:52 AM CDT 01/05/2025 10:52 AM CDT us Haley Kearney MD SEND OUTS Final Resul t [employer] [address] [place] [address], [facility] [address] [place] [address] * (ABNORMAL) COMP METABOLIC PANEL (01/05/2025 10:52 AM CDT) Pathologist [facility] GLUCOSE 191(H) 65 - 99 mg/dL [facility] [place] Comment: Fasting reference interval For someone without known diabetes, a glucose value >125 mg/dL indicates that they may have diabetes and this should be confirmed with a follow-up test. UREA NITROGEN (BUN) 10 7 - 25 mg/dL [facility] CREATININE 0.50 0.50 - 0.97 mg/dL [...] Haley Kearney MD CHEMISTRY Final Resul t [facility] [address] [place] [address], [facility] [address] [place] [address] * TREPONEMA PALLIDUM (01/05/2025 10:49 AM CDT) TREPONEMA PALLIDUM Non-Reacti ve Non-Reacti ve 01/05/2025 3:40 PM CDT [facility] TRAL LABORATORY Blood BLOOD SPECIMEN / Unknown [facility] / Unknown 01/05/2025 10:49 AM CDT 01/05/2025 10:49 AM CDT Haley Kearney MD SEND OUTS Final Resul t [facility] [address] [place] [address], * TYPE AND SCREEN (01/05/2025 10:49 AM CDT) Pathologist [facility] ABORH O Rh Positive 01/05/2025 4:40 PM CDT [facility] BLOOD [facility] ANTIBODY SCREEN Negative Negative 01/05/2025 4:40 PM CDT [facility] B[facility] SPECIMEN EXPIRATION DATE/TIME 01/08/25 23:59 01/05/2025 4:40 PM CDT [facility] Blood BLOOD SPECIMEN / Unknown [facility] / Unknown 01/05/2025 10:49 AM CDT 01/05/2025 10:49 AM CDT us Haley Kearney MD BLOOD BANK Final Resul t Performing Organization Address City/[facility]/ZIP Co de Phone Number [facility]OD [facility] [address] [place] [address], [place] [phone] * (ABNORMAL) PROTEIN/CREAT RATIO,URINE (01/05/2025 10:49 AM CDT) Pathologist [facility] PROTEIN QUANT,RAND URINE <6 1 - 14 mg/dL 01/05/2025 4:59 PM CDT [facility] TRAL LABORATORY CREAT,RANDOM URINE 22.1(L) 28.0 - 217.0 mg/dL 01/05/2025 4:59 PM CDT [facility] TRAL LABOR[facility]ORY PROT/CREAT RATIO,UR 01/05/2025 4:59 PM CDT [facility] Comment:Urine Protein below measurement range, unable to calculate. Urine URINE SPECIMEN / Unknown Non-Blood / Unknown 01/05/2025 10:49 AM CDT 01/05/2025 10:49 AM CDT us Haley Kearney MD URINE Final Resul t Performing Organization Address City/[facility]/ZIP Co de Phone Number [facility] [address] [phone], [place] * URINE CULTURE (01/05/2025 10:49 AM CDT) Pathologist [facility] CULTURE No growth (<1,000 CFU/mL) 01/06/2025 2:53 PM CDT [facility] Urine URINE SPECIMEN / Unknown Non-Blood / Unknown 01/05/2025 10:49 AM CDT 01/05/2025 10:49 AM CDT us Haley Kearney MD MICROBIOLOGY Final Resul t Performing Organization Address [facility] Co de Phone Number [facility] [address] [place] [address], * (ABNORMAL) POCT Urine (01/05/2025 9:19 AM CDT) [facility] POC HCG URINE POSITIVE(A ) NEGATIVE [facility] Urine URINE SPECIMEN / Unknown 01/05/2025 9:19 AM CDT 01/05/2025 9:19 AM CDT us Haley Kearney MD URINE Final Resul t Performing Organization Address City/[facility] Co de Phone Number [facility] [address] [place] [address], [place] [phone] [facility] [address] [place] [address] * (ABNORMAL) POCT Hemoglobin A1C Monitoring (12/01/2024 8:23 AM ARC TRIMMER) Pathologist [facility] POC HEMOGLOBIN A1C 9.2(H) <6.0 % OF TOTAL HGB [facility] Comment: Any point of care results exhibiting inconsistency with the patient's clinical status should be repeated using a different testing method. Blood BLOOD SPECIMEN / Unknown 12/01/2024 8:23 AM ARC TRIMMER 12/01/2024 8:24 AM ARC TRIMMER us Haley Kearney MD CHEMISTRY Final Resul t [facility] [address] [place] [address], [facility] [address] [place] [address] * MILLING SUPERVISOR THIN PREP PAP SCREEN IMAGED (06/26/2017 8:40 AM CDT) Case Report Gynecologic Cytology Report Case: [id number] Authorizing Provider: Emelia Chatman PA Collected: 06/26/2017 0840 Ordering Location: [facility] Received: 06/26/2017 0931 Clinic First Screen: Doretha Lr Specimen: MILLING SUPERVISOR ThinPrep Vial Screening, Cervical 07/01/2017 11:09 AM CDT [facility] ENTRAL LABORATORY INTERPRETATION/ RESULT NEGATIVE FOR INTRAEPITHELIAL LESION OR MALIGNANCY (NIL) (none) 07/01/2017 11:09 AM CDT [facility] ENTRAL LABORATORY IMEN ADEQUACY Satisfactory for evaluation No endocervical component seen 07/01/2017 11:09 AM CDT [facility] HPV REQUEST HPV if ASCUS 07/01/2017 11:09 AM CDT [facility] ENTRAL LABORATORY Date of LMP 06/07/2017 07/01/2017 11:09 AM CDT [facility] ENTRAL LABORATORY Last Pap Date 1 or 2 years ago 07/01 11:09 AM CDT [facility] ENTRAL LABORATORY Last Pap Result NIL 7 11:09 AM CDT [facility] Abnormal Pap or Dunbar Bx in last 5 years No 07/01/2017 11:09 AM CDT [facility] Menstrual Status Irregular Periods 07/01/2017 11:09 AM CDT [facility] Dunbar Bx Done Today No 07/01/2017 11:09 AM CDT [facility] ENTRMD LABORATORY Additional Information None given 07/01/2017 11:09 AM T [facility] Automated Review Successful 07/01/2017 11:09 AM T [facility] Comment:Specimen processed s uccessfully by automated radiation oncology manager device, ThinPrep Imaging System, [employer] Note The pap test is a screening technique, not a diagnostic procedure. It is used primarily to screen for squamous cancers and precursor lesions. Published studies have shown that it is subject to both false negative and false positive results. The pap test should not be used as the sole means to diagnose or exclude pre-malignant and malignant lesions. Interpreted at [facility] ([facility], [facility], [facility], [facility], [facility], [facility] [place], [facility]) 07/01/2017 11:09 AM T [facility] Other (Cervical) 06/26/2017 8:40 AM CDT 06/26/2017 9:31 AM CDT us Emelia AMATO PATHOLOGY/CYTOLOGY Celina pack Result [facility] [address] [place] [address], [place] from Last 3 Months or Most Recently Relevant to Health Maintenance Insurance . [address] [place] [address] [facility] CARE Advance Directives * Full Code (Latest Code Status on File) Date Activated Date Inactivated Comments 02/22/2018 10:31 PM 02/25/2018 5:11 PM Care Teams Dairy Associate Relationship Specialty Start Date End Date Haley Kearney MD [address] [facility] [place] [address] PCP - General Family Practice 08/29/24 Haley Kearney MD [address] [facility] [place] [address] Referring Provider Family Practice 01/05/25
[2025-01-07 08:02] LABS: Blood Urea Nitrogen* 11 mg/dL (5-24); Creatinine* 0.4 mg/dL (0.5-1.5); Est. Creatinine Clearance* 205.57; Estimated Glomerular Filt Rate 136 ml/min
[2025-01-07 08:03] LABS: Anion Gap 12 mEq/L (7-15); Calcium* 9.2 mg/dL (8.4-10.6); Carbon Dioxide* 20 mmol/L (20-32); Glucose* 170 mg/dL (60-115)
[2025-01-07 08:20] LABS: HCG Quantitative* 183.84 mIU/mL
[2025-01-07 08:38] VITALS: BP 129/72; PULSE 86; RESP 16; O2SAT 99
--- NOTE | 2025-01-07 15:30 | ED.NURSE ---
Call from Pt. Rx did not electronically send to [facility], caption writer called in verbally.
== END 2025-01-07 09:47 | disposition home or self-care (01) ==
LOC: ED 07:59
PROVIDERS: Emergency Provider Family Medicine; PCP Family Medicine
DX: N39.0 Urinary tract infection, site not specified (principal); O23.41 Unspecified infection of urinary tract in pregnancy, first trimester
CPT/HCPCS: 36415; 76817; 80048; 81001; 81025; 84702; 85025; 87086; 99284; A9270